=== PATIENT | female | born 1945 | race Caucasian/White ===

== ENCOUNTER 2023-05-28 08:06 | Emergency (ER) | payer MEDICARE, SELFPAY ==
[2023-05-28 08:10] VITALS: BP 195/83
--- NOTE | 2023-05-28 09:04 | ED.GENMED ---
History of Present Illness
General
Chief Complaint: Fall
Source: patient
Time Seen by Provider: 05/28/23 08:42
Travel History
Have you had any contact with someone who has COVID-19?: No
Do you have any symptoms of coronavirus? Fever > 100 degrees, chills, cough, shortness of breath, sore throat, loss of taste or smell, muscle aches, or headache?: No
History of Present Illness
History of Present Illness:
78-year-old female presents to the emergency room complaining of falling and striking her head 2 days ago. Patient states she tripped over her house 'falling forward striking the right forehead. No loss of consciousness. Patient has been feeling
okay since the fall until this morning when she noted she was developing bruising around her right eye. Patient also has a mild neck discomfort. She believes the next discomfort is more related to reading for prolonged period of time on her iPad.
She denies any nausea or vomiting. She does not have significant headache.
Past History
Past History
ED Past Medical History: Arrthythmia (PAF), CHF, COPD, HTN, Hypercholesterolemia and Valvular disease
ED Past Surgical History: None
Social History
Tobacco: Non-smoker
Alcohol: None
Drug: None
Living: with family
Employment: Retired
Family History
Family History: Other (n/c)
Phy Exam
Physical Exam
Physical Exam:
General: Awake, Alert, Oriented X3. No acute distress.
Vitals: unremarkable
Head: Mild ecchymosis noted infraorbitally on the right mild ecchymosis on the right forehead.
Eyes: Pupils equal, EOMI
Throat: Airway intact, no exudates
Neck: Trachea midline
Lungs: Clear and equal b/l
Heart: Regular rate, no murmurs
Abd: Soft, Nontender, No pulsatile mass
Neuro: Cranial nerves intact, muscle strength equal bilaterally, cerebellar exam normal
Skin: Warm, dry, no rash
Extremities: pulses equal b/l, no edema
Course
Orders/Labs/Results
Orders:
Orders
05/28/23 08:16
CT Head W/o Iv Contrast Urgent
Comment:
Reason For Exam: head injury on Eliquis
Cervical Spine 4 or 5 Vw [CR Cervical Spine 4 Or 5 Vw] Urgent
Comment:
Reason For Exam: fall
Vital Signs
Initial and Last Documented VS:
Initial Vital Signs
Temp Pulse Resp BP Pulse Ox
98 F 71 16 195/83 98
05/28/23 08:10 05/28/23 08:10 05/28/23 08:10 05/28/23 08:10 05/28/23 08:10
Last Documented Vital Signs
Temp Pulse Resp BP Pulse Ox
98 F 71 16 195/83 98
05/28/23 08:10 05/28/23 08:10 05/28/23 08:10 05/28/23 08:10 05/28/23 08:10
MDM/Problems Addressed
Differential Diagnosis Includes:
Subdural, intraparenchymal bleed, contusion
MDM/Problems Addressed:
Patient's CT of the head is unremarkable. Cervical spine films ordered in triage were significant only for some chronic degenerative changes. Patient stable for discharge home
*Radiology
Radiology exam reviewed: preliminary read by ED provider (Personally reviewed the patient's cervical spine x-ray and head CT)
*Pulse Oximetry
Patient hypoxic: no
*Critical Care Note
Total Time (30-74mins, 75-104mins- exclusive of procedures): Not Applicable
ED Attending Note
-
Portions of this chart may have been created with voice recognition software.� Occasional wrong word or��sound alike� substitutions may have occurred due to the inherent limitations of voice recognition software.
Discharge Plan
Departure
Patient Disposition: Home (Routine Discharge)
Date of Disposition: 05/28/23
Time of Disposition: 09:09
Patient with high blood pressure during this ER visit?: Yes
Condition: Good
Discharge Problem:
Head injury
Instructions: Head Injury in Adults (DC), BLOOD PRESSURE
Prescriptions:
No Action
Eliquis 5 mg Tablet
5 mg PO BID
Trelegy Ellipta 200-62.5-25 mcg Blister With Device
1 inh INHALATION R DAILY
ferrous sulfate [FeroSul] 325 mg (65 mg iron) Tablet
325 mg PO DAILY 30 Days Qty: 30 0RF
furosemide 40 mg Tablet
40 mg PO DAILY 30 Days Qty: 30 0RF
ropinirole 0.25 mg Tablet
0.25 mg PO HS 30 Days Qty: 30 0RF
benzonatate 100 mg Capsule
200 mg PO BIDPRN PRN (Reason: cough) 5 Days Qty: 10 0RF
potassium chloride 20 mEq tablet extended release
20 meq PO DAILY 30 Days Qty: 30 0RF
calcium carbonate 500 mg calcium (1,250 mg) Tablet
500 mg PO DAILY
guaifenesin 600 mg tablet extended release 12hr
1,200 mg PO [id number] PRN (Reason: cough)
amiodarone [Pacerone] 200 mg Tablet
400 mg PO BID 13 Days Qty: 52 0RF
Rx Instructions:
ontinue amiodarone 400 mg PO BID load through 12/18, then transition to 200mg daily
amiodarone 200 mg tablet
200 mg PO DAILY 30 Days Qty: 30 0RF
Rx Instructions:
start on 12/19 after you complete the 400mg BID load from other Rx. Then transition to 200mg daily
Interventions
Interventions:
*Risk Screen - Suicide Last Done: 05/28/23 08:10
*General Assessment Last Done: 05/28/23 08:10
*Neglect/Abuse Screening Last Done: 05/28/23 08:10
[2023-05-28 09:21] VITALS: BP 161/87
== END 2023-05-28 09:25 | disposition home or self-care (01) ==
LOC: EMR 08:06
PROVIDERS: EMERGENCY PHYSICIAN Emergency Medicine; FAMILY PHYSICIAN Internal Medicine
DX: S09.90XA Unspecified injury of head, initial encounter (principal); W22.8XXA Striking against or struck by other objects, initial encounter; I10 Essential (primary) hypertension; Z79.01 Long term (current) use of anticoagulants
CPT/HCPCS: 99284; 70450; 72050

== ENCOUNTER → 2023-08-20 15:41 | Outpatient (REF) | payer MEDICARE, SELFPAY | LOC: HWRCS 15:41 | PROVIDERS: ATTENDING PHYSICIAN Internal Medicine Cardiovascular Disease; FAMILY PHYSICIAN Internal Medicine | DX: I34.0 Nonrheumatic mitral (valve) insufficiency (principal); I48.0 Paroxysmal atrial fibrillation; I50.32 Chronic diastolic (congestive) heart failure; I35.1 Nonrheumatic aortic (valve) insufficiency; Z79.899 Other long term (current) drug therapy | CPT/HCPCS: 93306 ==

== ENCOUNTER → 2023-10-16 12:17 | Outpatient (REF) | payer MEDICARE, SELFPAY | LOC: HWWDC 12:17 | PROVIDERS: ATTENDING PHYSICIAN Internal Medicine | DX: Z85.3 Personal history of malignant neoplasm of breast (principal); Z12.31 Encounter for screening mammogram for malignant neoplasm of breast | CPT/HCPCS: 77063; 77067 ==

== ENCOUNTER → 2024-01-22 11:57 | Outpatient (REF) | payer MEDICARE, SELFPAY | LOC: HWRCS 11:57 | PROVIDERS: ATTENDING PHYSICIAN Internal Medicine Cardiovascular Disease; FAMILY PHYSICIAN Internal Medicine | DX: I34.0 Nonrheumatic mitral (valve) insufficiency (principal); I48.0 Paroxysmal atrial fibrillation; I50.32 Chronic diastolic (congestive) heart failure; I35.1 Nonrheumatic aortic (valve) insufficiency; Z79.899 Other long term (current) drug therapy | CPT/HCPCS: 93306 ==

== ENCOUNTER → 2024-10-02 08:14 | Outpatient (REF) | payer MEDICARE, SELFPAY | LOC: RAD 08:14 | PROVIDERS: ATTENDING PHYSICIAN Internal Medicine | DX: R25.2 Cramp and spasm (principal) | CPT/HCPCS: 93925 ==

== ENCOUNTER → 2024-10-15 10:11 | Outpatient (REF) | payer MEDICARE, SELFPAY | LOC: RAD 10:11 | PROVIDERS: ATTENDING PHYSICIAN Internal Medicine | DX: I73.9 Peripheral vascular disease, unspecified (principal) | CPT/HCPCS: 93922 ==

== ENCOUNTER → 2024-10-16 12:21 | Outpatient (REF) | payer MEDICARE, SELFPAY | LOC: HWWDC 12:21 | PROVIDERS: ATTENDING PHYSICIAN Internal Medicine | DX: Z12.31 Encounter for screening mammogram for malignant neoplasm of breast (principal) | CPT/HCPCS: 77063; 77067 ==

== ENCOUNTER 2024-11-17 07:59 | Day surgery (SDC) | payer MEDICARE, SELFPAY ==
[2024-11-10 09:11] VITALS: BMI 23.3
[2024-11-17] VITALS (36 sets, daily range): BP systolic 115–192; BP diastolic 47–169; BMI 22.8
--- NOTE | 2024-11-17 09:13 | W.SUR.PREOP ---
Pre-Operative Surgical Note
-
I have examined this patient prior to the performance of the scheduled procedure.
The patient's condition is unchanged from the time of the current History and
Physical and the patient is able to undergo the scheduled procedure.
--- NOTE | 2024-11-17 11:07 | W.IMMPOSTOP ---
Surgical Immed Post Op Note
-
Primary Surgeon: Alejandro
Assisting Surgeon: Cheyenne
Pre-op Diagnosis: left calf claudication
Post-op Diagnosis: occlusion of left SFA, PT
Procedure Performed: balloon angioplasty, IVL of SFA, PT
Anesthesia Type: Local/sedation
Specimen / Cultures: None
Estimated Blood Loss: 2 cc
Complications: None
Operative Findings: Occlusion of left SFA, PT with reconstitution in plantar arch. Balloon angioplasty of SFA, IVL + angioplasty of occluded PT segment with completion angiogram showing widely patent SFA and PT
[2024-11-17] MEDS: PLAVIX 300 MG PO (11:42)
[2024-11-17] MEDS: SUBLIMAZE 50 MCG IV (11:46)
--- NOTE | 2024-11-17 12:04 | OR.RPT ---
Operative Report
Operative Report
Date of Operation: 11/17/2024
Pre Op Diagnosis: Debilitating left lower extremity claudication
Post Op Diagnosis: Debilitating left lower extremity claudication
Procedure:
1. Intravascular lithotripsy to left posterior tibial artery (Shockwave Javelin)
2. Balloon angioplasty to left posterior tibial artery (2 mm x 220 mm; 2.5 mm x 150 mm)
3. Drug-coated balloon angioplasty to left popliteal artery stenoses (5 mm x 100 mm Lutonix)
4. Diagnostic aortobiiliac arteriogram
5. Diagnostic left lower extremity arteriogram
6. Ultrasound-guided percutaneous access to the right common femoral artery
Surgeon: Jatin Allen III, MD
Airplane Dispatcher: Nate Quinn MD PGY2
Anesthesia: Sedation with local
Fluoroscopy:
28.9 min
78 mGy
20.21 gy.cm2
Complications: None
Estimated Blood Loss: Less than 10 cc
History and Indications for Procedure: 79-year-old female with debilitating left lower extremity claudication
Procedure in Detail: Radha Maria was correctly identified and placed supine on the operating table. After adequate induction of anesthesia the bilateral groins were prepped and draped in the usual sterile fashion. A timeout was performed with the
nursing and anesthesia staff confirming the patient's identity as well as the nature and laterality of the procedure.
The right common femoral artery was identified under ultrasound guidance. The artery was patent. The superior and inferior aspects of the femoral head were identified with radiographic guidance and marked at the skin level. The proposed puncture
site was infiltrated with local anesthesia. Under ultrasound guidance we accessed the right common femoral artery with a micropuncture needle and upsized to a 5 Fr sheath over a Bentson wire. The wire and a ShephertenKsolar hook flush catheter were
advanced into the distal abdominal aorta and a diagnostic aorto-biiliac arteriogram was performed:
AORTO-ILIAC ARTERIOGRAM:
Aorta: Patent with no significant stenosis identified
Right common iliac artery: Patent with no significant stenosis identified
Right external iliac artery: Patent with no significant stenosis identified
Left common iliac artery: Patent with no significant stenosis identified
Left external iliac artery: Patent with no significant stenosis identified
Under roadmap guidance using a Glidewire and the SheCargoGuardertenKsolar hook catheter we selected the left common iliac artery followed by the external iliac artery and then the common femoral artery. A catheter was tracked up and over the aortic bifurcation and
placed in the common femoral artery. A diagnostic left lower extremity arteriogram was then performed which demonstrated the following:
LEFT LOWER EXTREMITY:
Common femoral artery: Patent with no stenosis identified
Profunda femoral artery: Patent with no stenosis identified
Superficial femoral artery: Patent with no stenosis identified
Popliteal artery: Patent. Focal high-grade stenoses identified above the knee and behind the knee. Below the knee segment patent with no stenosis identified
Anterior tibial artery: Patent. Mild to moderate stenosis focally mid section. Continues across the ankle to form the dorsalis pedis artery
Tibioperoneal trunk: Patent with no stenosis identified
Peroneal artery: Occluded proximally but reconstitutes towards the ankle.
Posterior tibial artery: Patent proximally. Segmental occlusions and high-grade stenosis demonstrated throughout the length of the artery. Diffusely diseased. Reconstitution of diminutive PT identified near the ankle.
ENDOVASCULAR INTERVENTION: Systemic heparin was administered. Exchanged out for a 6 Fr 45 cm sheath over a Storq wire. Selected the superficial femoral artery under roadmap guidance. The popliteal artery stenoses were crossed with a Quickcross and
Glidewire. The wire and catheter were advanced into the popliteal artery below the knee and subtraction angio confirmed proper position in the true lumen. The popliteal artery stenoses were treated with a 5 mm x 100 mm Lutonix drug-coated
angioplasty balloon. The balloon was positioned in the desired location under roadmap guidance, inflated to nominal pressure and held in place for 3 minutes before slowly deflating and removing over the wire. Subsequent arteriogram demonstrated an
excellent technical result with a widely patent popliteal artery and no significant residual stenosis or filling defects identified.
I then focused my attention on treating the posterior tibial artery disease. Under roadmap guidance using a Glidewire and Quickcross catheter we selected the posterior tibial artery stump. We then exchanged out for a [address] wire and 0.014
Quickcross. The wire and catheter were navigated through the posterior tibial artery and into the reconstituted plantar branch in the foot. Position confirmed with an injection through the catheter. Due to the calcified nature of the posterior
tibial artery disease and in an effort to successfully cross the artery, modify the calcium and achieve luminal gain with endovascular intervention I elected to proceed with intravascular lithotripsy with a Shockwave Javelin catheter. The Javelin
catheter was brought into position under radiographic guidance over the 0.014 wire into the proximal PT. The Javelin catheter was advanced through the posterior tibial artery and across the disease while simultaneously delivering lithotripsy pulses.
The tip of the catheter was advanced to the proximal plantar branch in the foot just below the calcaneus. 80 pulses were delivered on the way down through the PT and the remaining 40 while retracting the catheter back through the PT. Subsequent
arteriogram demonstrated significant luminal improvement. I then followed this with a 2 mm x 220 mm angioplasty balloon for the mid/distal STAMP MOUNTER. The balloon was positioned in the desired location under roadmap guidance, inflated to nominal pressure
and held in place for 3 minutes. The proximal and mid posterior tibial artery was treated with a 2.5 mm x 150 mm angioplasty balloon. Again this balloon was positioned in the desired location under roadmap guidance, inflated to nominal pressure
and held in place for 3-minute inflation
COMPLETION ARTERIOGRAM: Excellent technical result. Posterior tibial artery widely patent with brisk flow equal to the anterior tibial artery. No significant residual stenosis remained. Brisk flow into the foot to form the plantar branches.
Overall significant improvement compared to pretreatment.
Satisfied with this result we concluded the procedure. The sheath tip was pulled back into the right external iliac artery. Protamine was administered. The sheath was secured in place with a plan to pull it in the recovery room. The
The patient tolerated the procedure well and was taken to the recovery area in stable condition.
Attestation: I was present and responsible for the entire procedure.
Signed:
Jatin Allen III, MD
Vascular Surgery
[facility]
[2024-11-17 12:34] LABS: ALT (SGPT) 12 U/L (0-35); AST (SGOT) 22 U/L (14-36); Albumin 3.6 g/dl (3.5-5.0); Alkaline Phosphatase 69 U/L (38-126); Total Protein 5.9 g/dl (6.3-8.2)
[2024-11-17] MEDS: TYLENOL 650 MG PO (15:22)
== END 2024-11-17 17:01 | disposition home or self-care (01) ==
LOC: CATH 07:59
PROVIDERS: Nurse Practitioner Acute Care; ATTENDING PHYSICIAN Surgery Vascular Surgery; OTHER PHYSICIAN Internal Medicine Cardiovascular Disease; PRIMARYCARE PHYSICIAN Internal Medicine
DX: I73.9 Peripheral vascular disease, unspecified (principal); J44.9 Chronic obstructive pulmonary disease, unspecified; Z79.01 Long term (current) use of anticoagulants; I10 Essential (primary) hypertension
CPT/HCPCS: 37224; C9772; 75625; 75710; 80076; C1725; C1769; C1894; C2623; Q9967

== ENCOUNTER 2024-11-24 16:53 | Inpatient (IN) | payer MEDICARE, SELFPAY ==
[2024-11-24] VITALS (15 sets, daily range): BP systolic 85–168; BP diastolic 54–85; BMI 24.1; BMI 22.7
[2024-11-24 13:31] LABS: Hematocrit 38.3 % (37.0-47.0); Hemoglobin 12.8 g/dL (12.0-16.0); Mean Corp Hgb Conc. 33.4 g/dL (33.0-37.0); Mean Corpuscular Volume 99.0 fL (81.0-99.0); Nucleated Red Blood Cells % 0 %; Platelet Count 204 10^3/uL (130-400); Red Cell Dist. Width 14.9 % (11.5-14.5)
[2024-11-24 13:35] LABS: INR 1.39; PT 17.4 Sec (11.4-14.6)
[2024-11-24 13:36] LABS: APTT 27.4 Sec (23.4-35.0)
[2024-11-24 13:43] LABS: ALT (SGPT) 14 U/L (0-35); AST (SGOT) 25 U/L (14-36); Albumin 4.4 g/dl (3.5-5.0); Alkaline Phosphatase 73 U/L (38-126); Blood Urea Nitrogen 21 mg/dl (7-17); Calcium 9.2 mg/dl (8.4-10.2); Carbon Dioxide 26 mmol/L (22-30); Chloride 105 mmol/L (98-107); Glucose 106 mg/dl (70-99); Potassium 4.2 mmol/L (3.5-5.1); Sodium 139 mmol/L (135-145); Total Protein 7.2 g/dl (6.3-8.2); eGFR 56.60
--- NOTE | 2024-11-24 14:25 | ED.GENMED ---
History of Present Illness
<Eugenia Logan TRACK REPAIR LABORER - Last Filed: 11/24/24 14:28>
General
Chief Complaint: Swelling
Time Seen by Provider: 11/24/24 14:38
<Luisito Farrar MD - Last Filed: 11/24/24 15:32>
General
Source: patient and records
Exam Limitations: none
Nursing documentation reviewed up to this point in time: agreed with
History of Present Illness
History of Present Illness:
79-year-old female with past medical history of atrial fibrillation on Eliquis, COPD, hypertension, peripheral vascular disease who presents to the ER for evaluation of right leg/groin pain and swelling. Patient had angiogram and angioplasty with
Dr. Allen 11/17 for left leg claudication�right femoral artery used for access. She says that she had been generally well resting since procedure. She has had some bruising in the right leg but today around noon started having severe pain in the
right groin/thigh and increasing swelling which prompted visit to the emergency room. She denies any trauma or injury since the surgery. She denies any other acute complaints.
Past History
<Eugenia Logan TRACK REPAIR LABORER - Last Filed: 11/24/24 14:28>
Past History
ED Past Medical History: Arrthythmia (PAF), CHF, COPD, HTN, Hypercholesterolemia and Valvular disease
ED Past Surgical History: None
Social History
Tobacco: Non-smoker
Alcohol: None
Drug: None
Living: with family
Employment: Retired
Family History
Family History: Other (n/c)
Review of Systems
<Luisito Farrar MD - Last Filed: 11/24/24 15:32>
Review of Systems
All Other Systems: ROS reviewed and negative except as documented in HPI and ROS
Constitutional: Denies fever
Respiratory: Denies trouble breathing
Cardiac: Denies chest pain
ABD/GI: Denies abdominal pain
Musculoskeletal: Reports other (Right groin/thigh pain)
Skin: Reports other (Bruising right groin/thigh)
Phy Exam
<Luisito Farrar MD - Last Filed: 11/24/24 15:32>
Physical Exam
Physical Exam:
General: Awake, alert, oriented x3; appears uncomfortable
Head: Normocephalic, atraumatic
Eyes: Conjunctiva normal
Throat: Airway intact, handling secretions
Neck: Trachea midline, supple without meningismus
Lungs: Breathing comfortably no distress
Heart: Tachycardia; she does have palpable distal pulses bilaterally in her legs
Abd: Soft, non distended, nontender
Neuro: Grossly intact
Extremities: Patient has trace edema around the ankles left slightly more than right; no calf tenderness; on exam of the right groin she does have significant bruising extending from suprapubic region towards the right inguinal and right medial
thigh; there is some induration and pulsatile mass in the area of the femoral artery
Scores
<Luisito Farrar MD - Last Filed: 11/24/24 15:32>
Heart Failure Risk
Heart Failure Risk Score: Not Applicable
Heart Score for Chest Pain Patients
STEMI patient?: Not applicable
Withdrawal Assessment of Alcohol
Withdrawal Assessment Completed?: Not applicable
Course
<Eugenia Logan NP - Last Filed: 11/24/24 14:28>
Orders/Labs/Results
Orders:
Orders
11/24/24 13:19
US Groin (vascular exam) RT Urgent
Comment:
Reason For Exam: right groin swelling s/p left leg stents
11/24/24 13:21
Type+Screen Urgent
Complete Blood Count/With Diff Urgent
Comprehensive Metabolic Panel Urgent
PTT Urgent
Prothrombin Time Urgent
11/24/24 14:47
Vascular Surgery Consult Urgent
Consulting Provider: Manjit Guerra
Was physician already notified: Yes
HYDROmorphone [Dilaudid] 0.5 mg IV NOW STA
11/24/24 14:49
ABO2 Urgent
BBK Wristband Number:
Associate notified that ABO2 has been ordered: ROSALEE-ER
Date: 11/24/24
Time: 13:26
Security And Compliance Analyst ID: [id number]
Abnormal Lab Results
11/24/24
13:21
RBC 3.87 L 10^6/uL
(4.20-5.40)
MCH 33.1 H pg
(27.0-31.0)
RDW 14.9 H %
(11.5-14.5)
Absolute Lymphs (auto) 1.0 L 10^3/uL
(1.2-3.4)
Lymphocytes % 18.6 L %
(20.5-51.1)
Monocytes % 10.0 H %
(1.7-9.3)
PT 17.4 H Sec
(11.4-14.6)
BUN 21 H mg/dl
(7-17)
Glucose 106 H mg/dl
(70-99)
11/24/24 13:21
11/24/24 13:21
Vital Signs
Initial and Last Documented VS:
Initial Vital Signs
Temp Pulse Resp BP Pulse Ox
36.4 C 100 20 144/85 98
11/24/24 13:12 11/24/24 13:12 11/24/24 13:12 11/24/24 13:12 11/24/24 13:12
Last Documented Vital Signs
Temp Pulse Resp BP Pulse Ox
36.4 C 79 12 159/56 100
11/24/24 13:12 11/24/24 15:00 11/24/24 15:00 11/24/24 15:00 11/24/24 15:00
<Luisito Farrar MD - Last Filed: 11/24/24 15:32>
Orders/Labs/Results
Orders:
Orders
11/24/24 13:19
US Groin (vascular exam) RT Urgent
Comment:
Reason For Exam: right groin swelling s/p left leg stents
11/24/24 13:21
Type+Screen Urgent
Complete Blood Count/With Diff Urgent
Comprehensive Metabolic Panel Urgent
PTT Urgent
Prothrombin Time Urgent
11/24/24 14:47
Vascular Surgery Consult Urgent
Consulting Provider: Manjit Guerra
Was physician already notified: Yes
HYDROmorphone [Dilaudid] 0.5 mg IV NOW STA
11/24/24 14:49
ABO2 Urgent
BBK Wristband Number:
Associate notified that ABO2 has been ordered: ROSALEE-ER
Date: 11/24/24
Time: 13:26
Security And Compliance Analyst ID: [id number]
Abnormal Lab Results
11/24/24
13:21
RBC 3.87 L 10^6/uL
(4.20-5.40)
MCH 33.1 H pg
(27.0-31.0)
RDW 14.9 H %
(11.5-14.5)
Absolute Lymphs (auto) 1.0 L 10^3/uL
(1.2-3.4)
Lymphocytes % 18.6 L %
(20.5-51.1)
Monocytes % 10.0 H %
(1.7-9.3)
PT 17.4 H Sec
(11.4-14.6)
BUN 21 H mg/dl
(7-17)
Glucose 106 H mg/dl
(70-99)
11/24/24 13:21
11/24/24 13:21
Vital Signs
Initial and Last Documented VS:
Initial Vital Signs
Temp Pulse Resp BP Pulse Ox
36.4 C 100 20 144/85 98
11/24/24 13:12 11/24/24 13:12 11/24/24 13:12 11/24/24 13:12 11/24/24 13:12
Last Documented Vital Signs
Temp Pulse Resp BP Pulse Ox
36.4 C 79 12 159/56 100
11/24/24 13:12 11/24/24 15:00 11/24/24 15:00 11/24/24 15:00 11/24/24 15:00
<Luisito Farrar MD - Last Filed: 11/24/24 15:32>
MDM/Problems Addressed
Differential Diagnosis Includes:
Pseudoaneurysm, hematoma
MDM/Problems Addressed:
79-year-old female presents with right groin/medial thigh pain and swelling, bruising started abruptly today 1 week out from vascular surgery last week. Vitals and exam as above. She had lab work sent in triage including a CBC and a CMP which
showed no clinically significant. She had an ultrasound out of triage which showed signs concerning for pseudoaneurysm. Case discussed with vascular surgery�they are currently in the OR, recommended consult to interventional radiology for
consideration for thrombin injection. Discussed with interventional radiology who are agreeable. Will admit to hospitalist for observation overnight after procedure, likely follow-up ultrasound in the morning. Case discussed with hospitalist.
Chronic conditions affecting care:
A-fib on Eliquis
Acute Exacerbation and/or Progression of Chronic Illness:
Acutely hypertensive likely pain related�treat pain but no indication for emergent antihypertensives for now
Acute Exacerbation and/or Progression of Chronic Illness: HTN
<Eugenia Logan NP - Last Filed: 11/24/24 14:28>
*Pulse Oximetry
SaO2: 98
Oxygen Mode of Delivery: Room air
<Luisito Farrar MD - Last Filed: 11/24/24 15:32>
*Pulse Oximetry
Oxygen Mode of Delivery: Room air
Patient hypoxic: no (98%)
*Critical Care Note
Total Time (30-74mins, 75-104mins- exclusive of procedures): Not Applicable
Data Reviewed
Review of Other/Old Records Reveals: Records and Operative Reports
Source: patient and records
<Luisito Farrar MD - Last Filed: 11/24/24 15:32>
Patient Management
Discussion with other providers: Hospitalist (Discussed with hospitalist) and Box Covering Machine Operator (Discussed with vascular surgery, discussed with the interventional radiology)
Escalation/DeEscalation of care consider admission/obs:
Admission indicated
ED Attending Note
<Eugenia Logan NP - Last Filed: 11/24/24 14:28>
-
Portions of this chart may have been created with voice recognition software.� Occasional wrong word or��sound alike� substitutions may have occurred due to the inherent limitations of voice recognition software.
Discharge Plan
Departure
Patient Disposition: Admit
Date of Disposition: 11/24/24
Time of Disposition: 15:32
Admit to doctor: Alexandr
Presentation/result/management discussed w/ accepting MD/DO: Hospitalist
Discharge Problem:
Pseudoaneurysm of femoral artery
Prescriptions:
No Action
Eliquis 5 mg Tablet
5 mg PO BID
Trelegy Ellipta 200-62.5-25 mcg Blister With Device
1 inh INHALATION R DAILY
valsartan 80 mg Tablet
80 mg PO QPM
acetaminophen 650 mg Tablet Extended Release
1,300 mg PO Q8H PRN (Reason: pain)
magnesium 250 mg Tablet
250 mg PO DAILY
Calcium 600 + D(3)
1 dose PO DAILY
furosemide 40 mg tablet
20 mg PO MOWEFR
amiodarone 200 mg tablet
100 mg PO DAILY
levalbuterol tartrate 45 mcg/actuation Hfa Aerosol Inhaler
2 inh INHALATION PRN PRN (Reason: COPD)
clopidogrel 75 mg Tablet
75 mg PO DAILY Qty: 90 0RF
atorvastatin 10 mg Tablet
10 mg PO QPM Qty: 120 0RF
Referrals:
Lise Jefferson DO [Family Provider, Family Practice]
Interventions
Interventions:
*Risk Screen - Suicide Last Done: 11/24/24 13:12
*Neglect/Abuse Screening Last Done: 11/24/24 15:04
ED- Cardiac Assessment Last Done: 11/24/24 15:05
ED- Pulmonary Assessment Last Done: 11/24/24 15:05
ED-Skin Assessment Last Done: 11/24/24 15:05
Discharge Date and Time
Print Language: MONTENEGRIN
[2024-11-24] MEDS: DILAUDID 0.5 MG IV ×2 (14:52→18:53)
--- NOTE | 2024-11-24 15:01 | EDRN ---
1440 pt received from [facility] via stretcher. Transferred to ER 39. Dr Farrar in
--- NOTE | 2024-11-24 15:37 | HPS.HSE ---
Addendum entered and electronically signed by Mariano Strange MD 11/24/24 16:33:
I saw and examined the patient.
The POLICE ACADEMY PROGRAM COORDINATOR or PA's note was reviewed and I agree with the note.
Comment:
79F S/p LLE angioplast ( Dr. Allen 11/17) pw R groin swelling and pain today.
Son suggest pseudoaneurysm.
Plan is IR to take for thrombin injection.
Per vascular observe after and to repeat US in AM.
ER consulted IR and vascular.
Original Note:
Family Physician
-
Family Physician: Lise Jefferson DO
Chief Complaint
-
Right groin ecchymosis, swelling status post angioplasty
History of Present Illness
79-year-old female status post angioplasty by Dr. Allen on 11/17 for left leg claudication using right femoral artery for access. She reports bruising in the right groin and thigh with increased swelling which prompted her to come to the ER for
evaluation today. Patient denies headache, fever, chills, chest pain, palpitations, cough, shortness of breath, abdominal pain, nausea, vomiting, diarrhea, urinary symptoms.
She has past medical history of chronic diastolic heart failure, CKD 3 A, persistent A-fib, HTN, HLD, COPD, COVID-19, hyponatremia, Left breast lumpectomy 2011, constipation, CHITIMACHA
Medical History
Past Medical History
Past Medical History: Reports Other
Additional Past Medical History:
Diastolic heart failure
CKD 3 A
Persistent A-fib
HTN
HLD
COPD
COVID-19
hyponatremia
Past Surgical History: Reports Other
Additional Past Surgical History:
Left breast lumpectomy
Angioplasty via access right groin to left leg 11/17/2024
Social History
Tobacco: Non-smoker
Alcohol: Occasional
Drug: None
Personal: Single
Living: With Family
Employment: Retired
Family History
Family History: Not pertinent
Allergies / Home Medications
Allergies reflects when Allergies were last updated in [facility].
Home Medications with original date entered in [facility]
Allergy/Medication List:
Allergies
Allergy/AdvReac Type Severity Reaction Status Date / Time
No Known Allergies Allergy Verified 11/24/24 13:11
Home Medications
fluticasone fur. 200 mcg-umeclid 62.5 mcg-vilant 25 mcg inhalat.powder (Trelegy Ellipta) 1 inh inhalation R DAILY Lung/Breathing Issues 11/28/22
amiodarone 200 mg tablet 100 mg PO DAILY 11/07/24
calcium carbonate 500 mg PO DAILY ##0 11/07/24
magnesium 250 mg tablet 250 mg PO DAILY 11/07/24
valsartan 80 mg tablet 80 mg PO QPM 11/07/24
atorvastatin 10 mg tablet 10 mg PO QPM #120 tabs 11/17/24
clopidogrel 75 mg tablet 75 mg PO DAILY #90 tabs 11/17/24
levalbuterol tartrate 45 mcg/actuation aerosol inhaler 2 inh inhalation R Q6HPRN PRN COPD 11/17/24
apixaban 5 mg tablet (Eliquis) 5 mg PO BID 11/24/24
furosemide 20 mg tablet (Lasix) 20 mg PO MOWEFR 11/24/24
Review of Systems
-
History Source: Patient and Family (Daughters at bedside)
A 12 point ROS was completed and negative except as noted: Yes
Constitutional: Denies Fever or Chills
EENT: Denies Sore Throat or Runny Nose
Respiratory: Denies Cough or Trouble Breathing
Cardiac: Denies Chest Pain, Diaphoresis, Palpitations or Syncope
Abdomen/GI: Denies Abdominal Pain, Nausea, Vomiting, Diarrhea, Constipated or Bloody Stools
: Denies Dysuria, Frequency, Flank Pain, Incontinence, Difficulty Voiding or Urgency
Musculoskeletal: Reports Edema (/Ecchymosis right groin to right thigh/right mons pubis); Denies Joint Pain or Joint Swelling
Skin: Denies Itching or Rash
Neurological: Denies Dizzy, Headache or Weakness
Endocrine: Reports No Symptoms
Hematologic/Lymphatic: Reports No Symptoms
Psych: Reports Calm
Physical Exam
Vital Signs
Vital Signs
Temp Pulse Resp BP Pulse Ox
97.5 F 80 19 159/56 100
11/24/24 13:12 11/24/24 15:30 11/24/24 15:30 11/24/24 15:00 11/24/24 15:30
Physical Exam
General: Conversant; No Fever or Chills
HEENT: NormoCephalic, Anicteric, Moist mucous membranes, PERRLA, [place] Conjunctivae and No Ptosis
Respiratory: Clear; No Wheezes, Rales or Rhonchi
Cardiac: S1/S2, Regular Rhythm and Peripheral Edema (+1 left lower extremity edema); No Murmur, Rub or Gallop
Breast: Deferred by me
GI: Soft, Non Tender, Non Distended, Normal Bowel Sounds and No Hepatosplenomegaly
Rectal: Deferred by Provider
Genito-urinary: Deferred by me
Musculoskeletal: No Clubbing, No Cyanosis and Edema, Left Lower Extremity (+1); No Edema, Left Upper Extremity, Edema, Right Upper Extremity or Edema, Right Lower Extremity
Skin: Warm, Dry and Other (/Ecchymosis right groin to right thigh/right mons pubis); No Rash
Neuro: AO x 3, No Motor Deficits, Nonfocal/grossly intact, Cranial Nerves Intact and No Sensory Deficits; No Slurred Speech, Facial Droop, Tremors or Sedated
Psych: Calm
Laboratory Results
-
11/24/24 13:21
11/24/24 13:21
Laboratory Results
PT 17.4 Sec (11.4-14.6) H 11/24/24 13:21
INR 1.39 11/24/24 13:21
APTT 27.4 Sec (23.4-35.0) 11/24/24 13:21
Total Bilirubin 1.1 mg/dl (0.2-1.3) 11/24/24 13:21
AST 25 U/L (14-36) 11/24/24 13:21
ALT 14 U/L (0-35) 11/24/24 13:21
Alkaline Phosphatase 73 U/L (38-126) 11/24/24 13:21
Impression/Plan
-
Impression/plan:
Admit to IVU
#Pseudoaneurysm right femoral artery status post angioplasty LEFT leg on 11/17/[address] Allen
#History of debilitating left lower extremity claudication
- Consult IR
-Consult vascular surgery
Hgb stable 12.8
- Continue Plavix 75 mg daily, atorvastatin 10 mg every afternoon
#Chronic diastolic heart failure
I/O, daily weight
Continue Lasix Sunday 20 mg
CKD 3 A
- Creat 1 appears baseline for patient
#Persistent A-fib
Hold Tataquis patient took last dose 11/24/2024 at 1030 this a.m.
Continue amiodarone 100 mg daily
#HTN
BP 159/56
-Continue valsartan 80 mg every afternoon
#HLD
Continue atorvastatin 10 mg every afternoon
COPD�no acute exacerbation
- Continue inhalers
#Hypomagnesemia
Continue magnesium 250 mg daily
Other PMH:
COVID-19 hx
hyponatremia
DVT prophylaxis
Hold Tataquis taken this a.m. 11/24/2024 at 1030
Full code
--- NOTE | 2024-11-24 18:48 | W.PN.UPDATE ---
Update Note
Progress Note Update
Right groin pseudoaneurysm was complex and multilobulated. Two separate thrombin injections of 1000 units each, with complete cessation of flow in the pseudoaneurysm.
Right MANAGER [employer]LET[employer] flow preserved after injection. Strong PT and weak DP doppler signals, unchanged compared to before injection.
Patient reported numbness in both of her feet, which began this morning. She felt a pressure sensation immediately after the injection, and pressure and numbness in her right calf, which was improving after injection.
There is a large hematoma in her right groin, which may be exerting pressure on nerves and causing her LE symptoms.
Plan for repeat US tomorrow to confirm closure.
--- NOTE | 2024-11-24 19:00 | PTCARENOTE ---
Patient admitted to IVU. HOB flat until 7 pm. Right femoral site swollen, tender, pulsating pain, very bruised. 7 out 10. Dilaudid IV given and she developed nausea and dry heavies. Nausea and pain resolved. Edema + 2 left lower leg, warm and red.
Pulses verified with Doppler. Purwick placed. Daughter at bedside. Light dinner provided and tolerating
[2024-11-24] MEDS: ZOFRAN 4 MG IV (19:57)
[2024-11-24] MEDS: DIOVAN 80 MG PO (19:58)
[2024-11-24] MEDS: LIPITOR 10 MG PO (19:58)
--- NOTE | 2024-11-24 23:29 | PTCARENOTE ---
Received pt at change of shift, aaox3, drowsy, able to make needs known, family at bedside. Right femoral site swollen and tender, ecchymotic. Dilaudid IV was given previous shift, denies pain, sensation to LE improving. Edema + 1 LLE and +2 right
thigh, warm and red, pulses verified with Doppler. Pt had x1 episode of large undigested food emesis after dinner. Zofran given with + effect. SR on the monitor, HR 70's. OOB with assist x1 to bedside commode, clear yellow large urine output. Denied
dizziness or lightheadedness with ambulation. VSS. Call garrison within reach.
[2024-11-25 04:04] VITALS: BP 122/45
[2024-11-25] MEDS: TYLENOL 650 MG PO (04:22)
[2024-11-25 05:12] LABS: Hematocrit 30.3 % (37.0-47.0); Hemoglobin 10.3 g/dL (12.0-16.0); Mean Corp Hgb Conc. 34.0 g/dL (33.0-37.0); Mean Corpuscular Volume 100.7 fL (81.0-99.0); Nucleated Red Blood Cells % 0 %; Platelet Count 163 10^3/uL (130-400); Red Cell Dist. Width 15.1 % (11.5-14.5)
[2024-11-25 05:30] VITALS: BMI 22.7
[2024-11-25 05:31] LABS: ALT (SGPT) 12 U/L (0-35); AST (SGOT) 20 U/L (14-36); Albumin 3.6 g/dl (3.5-5.0); Alkaline Phosphatase 60 U/L (38-126); Blood Urea Nitrogen 27 mg/dl (7-17); Calcium 8.8 mg/dl (8.4-10.2); Carbon Dioxide 26 mmol/L (22-30); Chloride 104 mmol/L (98-107); Estimated Creatinine Clearance 34 ml/min; Glucose 93 mg/dl (70-99); Potassium 4.5 mmol/L (3.5-5.1); Sodium 135 mmol/L (135-145); Total Protein 6.0 g/dl (6.3-8.2); eGFR 45.48
--- NOTE | 2024-11-25 05:36 | PTCARENOTE ---
Hgb dropped from 12.8 to 10.3 with morning labs, no signs of active bleeding noted, urine clear yellow.VSS. mail caller SYSTEM SUPPORT TECHNICIAN made aware, no new orders at this time.
[2024-11-25 07:33] VITALS: BP 123/49
[2024-11-25] MEDS: SYMBICORT 160/4.5 MCG INHALER 2 PUFF INH (07:48)
[2024-11-25] MEDS: SPIRIVA RESPIMAT 2.5 MCG 2 PUFF INH (07:49)
[2024-11-25] MEDS: OSCAL CAL 500 500 MG PO (08:25)
[2024-11-25] MEDS: PACERONE 100 MG PO (08:25)
[2024-11-25] MEDS: PLAVIX 75 MG PO (08:25)
[2024-11-25] MEDS: MAGNESIUM OXIDE 250 MG PO (08:25)
--- NOTE | 2024-11-25 09:28 | W.PN.HOSP.TC ---
Today's Communication/Plan
-
IR to repeat ultrasound today to confirm closure
Plan discharge when cleared by vascular surgery
Assessment / Plan
Assessment / Plan
Patient is a 79-year-old female s/p angioplasty by Dr. Allen on 11/17/2024 for left leg claudication using right femoral artery for access. Patient reported bruising in the right groin and thigh with increased swelling which prompted her ER visit on
11/24/2024. No headache, fever, chills, chest pain, palpitation, cough, shortness of breath, abdominal pain, vomiting, diarrhea or urinary symptoms. Additional past medical history of chronic diastolic heart failure, CKD, persistent atrial
fibrillation, hypertension, hyperlipidemia, COPD, hyponatremia, left breast lumpectomy in 2011.
# Pseudoaneurysm of right femoral artery s/p angioplasty left leg on 11/17/[address] Allen
# History of debilitating left lower extremity claudication
# Nausea and vomiting
�IR and vascular surgery were consulted.
� IR: Two separate thrombin injections of 1000 units each, with complete cessation of flow in the pseudoaneurysm. Right COMPOUND FILLER flow preserved after injection. Strong PT and weak DP doppler signals, unchanged compared to before injection. Patient
reported numbness in both of her feet, which began 11/24/24 morning. She felt a pressure sensation immediately after the injection, and pressure and numbness in her right calf, which was improving after injection. Symptoms resolved 11/25/24 morning.
� Plan for repeat ultrasound today 11/25/24 to confirm closure
� Hemoglobin 10.3 11/25/24, decreased from 12.8 yesterday. Trend Hgb.
� Continue Plavix 75 Mg daily, atorvastatin 10 Mg every afternoon
� Continue Dilaudid 0.5 mg IV Q3hPRN
� Continue Zofran 4 Mg IV Q6hPRN
#Chronic diastolic heart failure
� I/Os, daily weights
� Continue Lasix 20 mg Sunday/Sunday/Sunday
#Chronic kidney disease stage IIIa
�Creatinine 1.2 which is near baseline for patient.
�Trend CMP.
#Persistent atrial fibrillation
� Hold Eliquis. Last dose 11/24/2024 at 10:30 AM
�Continue amiodarone 100 Mg daily
#Hypertension
�Continue valsartan 80 Mg every afternoon
#Hyperlipidemia
� Continue atorvastatin 10 Mg every afternoon
#COPD
� No acute exacerbation, continue inhalers.
#Hypomagnesemia
�Continue magnesium 250 Mg daily
DVT prophylaxis: Contraindicated with PAD/hematoma with ABLA
CODE STATUS: Full code
Anticipated Discharge: 24 - 48 hours
Subjective/Interval History
-
Date of Service: November 25, 2024
Patient states she does not have lower extremity numbness/pain anymore. Patient had an episode of vomiting yesteday with associated nausea, but none since. No new symptoms.
Objective Data
-
Labs:
Laboratory Results
11/25/24 11/25/24
04:11 04:12
WBC 5.9
Hgb 10.3 L
Hct 30.3 L
Plt Count 163 D
Sodium 135
Potassium 4.5
Chloride 104
Carbon Dioxide 26
BUN 27 H
Creatinine 1.2 H
Glucose 93
Calcium 8.8
Total Bilirubin 1.2
AST 20
ALT 12
Alkaline Phosphatase 60
Vital Signs:
Vital Signs
Temp Pulse Resp BP Pulse Ox
98.3 F 71 14 123/49 97
11/25/24 07:33 11/25/24 08:25 11/25/24 07:55 11/25/24 08:25 11/25/24 07:55
I&O
11/24/24 11/25/24 11/26/24
06:59 06:59 06:59
Intake Total 240 / 240
Output Total 1250 / 1250
Balance -1010 / -1010
Review of Systems
-
History Source: Patient
Constitutional: Reports No Symptoms
EENT: Reports No Symptoms Reported
Respiratory: Reports No Symptoms
Cardiac: Reports No Symptoms
Abdomen/GI: Reports No Symptoms
Breast: Reports No Symptoms
Genitourinary: Reports No Symptoms
Musculoskeletal: Reports No Symptoms
Skin: Reports No Symptoms
Neuro: Reports No Symptoms
Endocrine: Reports No Symptoms
Hematologic / Lymphatic: Reports No Symptoms
Allergy / Immunology: Reports No Symptoms
Physical Exam
-
General: Well Developed, Well Nourished, No Apparent Distress, Comfortable and Conversant
HEENT: Normocephalic, Atraumatic, Moist Mucous Membranes and Anicteric
Respiratory: Clear to Auscultation
Cardiac: Regular Rhythm and S1/S2
GI: Soft, Nontender, Nondistended and Normal Bowel Sounds
Musculoskeletal: No Clubbing, No Cyanosis and No Edema
Neuro: Awake, AO x 3 and Nonfocal/Grossly Intact
Psych: Calm
Data Reviewed
-
Labs: Labs Reviewed by me and Discussed with Physician
Old Records: Reviewed
--- NOTE | 2024-11-25 10:36 | W.PN.UPDATE ---
Addendum entered and electronically signed by Christo Penn MD 11/25/24 12:05:
Case discussed with vascular surgery. They have cleared the patient for discharge. Eliquis may be restarted tonight.
Unexpected rapid recovery
Total time spent on d/c = 34 min. This included today's physical exam, progress note, review of laboratory and diagnostic data, preparation of discharge documents and prescriptions, and discussions about the pt's hospital course and discharge plan
with the patient and other medical payment poster involved in the patient's care.
Original Note:
Update Note
Progress Note Update
I saw and evaluated the patient. I reviewed the resident�s note and agree with findings and plan as documented in the resident�s note.
No new complaints.
Gen: NAD, AAOx3.
Eyes: EOMI, PERRLA, no scleral icterus.
Neck: supple.
CV: RRR, +S1/S2, no m/r/g.
Resp: CTAB, no rales, wheezes, or rhonchi.
Abd: +BS, soft, NT, ND
Skin: No rashes. Right medial thigh/groin hematoma.
Neuro: CN 2-12 intact, non-focal.
Psych: Normal mood and affect.
R groin U/S 11/25/24: Thrombosis of the previously visualized right common femoral arterial pseudoaneurysm.
Pseudoaneurysm R femoral artery:
-s/p angioplasty LEFT leg on 11/17/[address] Allen for h/o debilitating LLE claudication
-s/p thrombin injection x 2 by IR on 11/24/24, follow up U/S above
-R groin hematoma accounts for acute blood loss anemia, trend Hb while hospitalized
-c/s vascular surgery
-cont Plavix/statin
Other problems:
Chronic HFpEF: cont Lasix M/W/F, daily wts, I/Os
CKD3a
Persistent A-fib: Home Eliquis on hold, cont Amio
Essential HTN: cont ARB
HLD: cont statin
COPD, not in acute exac: cont Symbicort/Spiriva
Hypomagnesemia: cont PO Mg
FULL
DVT proph contraindicated with PAD and hematoma with ABLA
Dispo: d/c when OK with vascular surgery
--- NOTE | 2024-11-25 11:55 | CON.VAS ---
Consultation
Consultation Request
Date/Time Consultation Performed: 11/25/24 11:30
Performing Provider: Alejandro
Reason for Consultation: PSA s/p femoral access
Medical History
-
Chief Complaint: R groin swelling/pain
History of Present Illness:
79 yo female with PMH significant for afib, heart failure, CKD 3 A, HTN, HLD, COPD, presented to the ER last evening for right groin swelling/bruising s/p intravascular lithotripsy to left posterior tibial artery, balloon angioplasty to left
posterior tibial artery, drug-coated balloon angioplasty to left popliteal artery stenoses via right femoral access on 11/17/[address] Allen. She reported bruising in the right groin and thigh with increased swelling which prompted her to come to
the ER for evaluation.
ER US groin: Duplex examination of the right groin reveals an elongated bilobed right femoral artery pseudoaneurysm measuring 3.6 cm x 0.6 cm and 1.8 cm x 0.95 cm.
Vascular consult for above findings. Recommended IR to inject.
Successful thrombin injection last night by IR.
This mornings groin US showed thrombosis of the right common femoral arterial pseudoaneurysm.
Pt feeling much better this am. No other events overnight. Groin site soft and stable. Resolving symptoms in her right leg as well.
Past Medical History
Past Medical History: Other (Diastolic heart failure, CKD 3 A, Persistent A-fib, HTN, HLD, COPD, COVID-19, hyponatremia)
Past Surgical History: Other (Left breast lumpectomy, Angioplasty via access right groin to left leg 11/17/2024)
Social History
Tobacco: Non-Smoker
Alcohol: Occasional
Drug: None
Personal: Single
Living: With Family
Employment: Retired
Family History
Family History: Reviewed & Not Pertinent
Allergies / Home Medications
Allergy/AdvReac Type Severity Reaction Status Date / Time
No Known Allergies Allergy Verified 11/24/24 13:11
�Medication �Instructions �Recorded �Confirmed �Type
fluticasone fur. 200 mcg-umeclid 1 inh inhalation R DAILY 11/28/22 11/24/24 History
62.5 mcg-vilant 25 mcg Lung/Breathing Issues
inhalat.powder (Trelegy Ellipta)
amiodarone 200 mg tablet 100 mg PO DAILY 11/07/24 11/24/24 History
calcium carbonate 500 mg PO DAILY ##0 11/07/24 11/24/24 History
magnesium 250 mg tablet 250 mg PO DAILY 11/07/24 11/24/24 History
valsartan 80 mg tablet 80 mg PO QPM 11/07/24 11/24/24 History
atorvastatin 10 mg tablet 10 mg PO QPM #120 tabs 11/17/24 11/24/24 Rx
clopidogrel 75 mg tablet 75 mg PO DAILY #90 tabs 11/17/24 11/24/24 Rx
levalbuterol tartrate 45 2 inh inhalation R Q6HPRN PRN COPD 11/17/24 11/24/24 History
mcg/actuation aerosol inhaler
apixaban 5 mg tablet (Eliquis) 5 mg PO BID 11/24/24 11/24/24 History
furosemide 20 mg tablet (Lasix) 20 mg PO MOWEFR 11/24/24 11/24/24 History
Review of Systems
-
History Source: Patient
All other systems: Negative unless noted
Constitutional: Reports No Symptoms
EENT: Reports No Symptoms
Respiratory: Reports No Symptoms
Cardiac: Reports No Symptoms
Vascular: Reports Leg Pain / Claudication
Abdomen/GI: Reports No Symptoms
: Reports No Symptoms
Musculoskeletal: Reports Edema
Skin: Reports Other (bruising to right groin )
Physical Exam
Vital Signs
Temp Pulse Resp BP Pulse Ox
97.8 F 71 16 123/49 96
11/25/24 11:24 11/25/24 08:25 11/25/24 11:24 11/25/24 08:25 11/25/24 11:24
Lab Results
11/25/24 04:11
11/25/24 04:12
Physical Exam
General: No Apparent Distress
HEENT: Normocephalic and Atraumatic
Respiratory: Non Labored Respirations
Cardiac: Negative JVD
GI: Soft, Non Tender and Non Distended
Musculoskeletal: No Clubbing, No Cyanosis and Edema (RLE +1)
Skin: Warm
Neuro: Awake, Alert and Oriented
Psych: Calm
Pulses: Bilateral Dorsalis Pedis: Doppler and Bilateral Posterior Tibial: Doppler
Assessment / Plan
-
right groin swelling/bruising s/p intravascular lithotripsy to left posterior tibial artery, balloon angioplasty to left posterior tibial artery, drug-coated balloon angioplasty to left popliteal artery stenoses via right femoral access on 11/17/[address] Allen. She reported bruising in the right groin and thigh with increased swelling which prompted her to come to the ER for evaluation.
IR injected PSA
This mornings US confirmed thrombosis
Pt feeling much better this morning
Plan:
Keep scheduled follow up in our office with US
OK for DC from vascular perspective
OK for eliquis to resume tonight
Discussed with Dr Penn and Dr Allen
Data Reviewed
-
Ultrasound: Discussed with Patient
Labs: Labs Reviewed by me
[2024-11-25 13:07] VITALS: BP 146/51; O2SAT 96
--- NOTE | 2024-11-25 13:18 | PTOTSP ---
Patient demonstrates safe and independent mobility, no skilled physical therapy needs at this time.
--- NOTE | 2024-11-25 13:25 | CM ---
Reviewed chart. Met with Mrs. Maria to review discharge plans. She states prior to admission she resides alone in a two story home with one step to enter. She states she has a full flight of steps to get to bedroom/full bathroom. She states she
has a powder room on the first floor. She states prior to admission she was independent with ambulation and adls. She states she does not have any DME in the [place]. She states she has a prescriotion plan and [facility]. Medical work-up
in progress. The discharge plan is to return home when medically stable.
--- NOTE | 2024-11-25 13:41 | W.DCSUMMARY ---
Discharge Summary
Discharge Data
Date of Admission: 11/24/24
Date of Discharge: 11/25/24
-
Pending Results: No
Hospital Course
Discharging Physician : Dr. Christo Penn and Dr. Bernard Switf
Disposition : Home
Primary care physician : Dr. Lise Jefferson
Principal Discharge diagnosis : Pseudoaneurysm right femoral artery status post thrombin injection x2 by Interventional radiology on 11/24/24
Chronic Discharge diagnosis :
Diastolic heart failure
Chronic kidney disease stage IIIa
Persistent atrial fibrillation
Hypertension
Hyperlipidemia
COPD
History of left breast lumpectomy in 2011
Hospital Course :
Patient is an 79-year-old female with a history of chronic diastolic heart failure, CKD stage IIIa, persistent atrial fibrillation, hypertension, and COPD who presented on 11/24/2024 with right groin and thigh bruising and swelling following left leg
angioplasty performed by Dr. Allen on 11/17/2024 via right femoral artery access. She denies systemic symptoms including headache, fever, chills, chest pain, shortness of breath or GI complaints.
Imaging confirmed a right femoral artery pseudoaneurysm. Eliquis was held 11/24/2024. Interventional radiology performed 2 thrombin injections of 100 units each, resulting in successful thrombosis of pseudoaneurysm with preserved right common
femoral artery flow. Postprocedure, the patient noted transient numbness and pressure in the right calf, which resolved by the next morning. Hemoglobin declined from 12.8-10.3; the patient remained stable throughout. Pain and nausea was managed
as needed with Zofran PRN. Patient's amiodarone, Plavix, Lasix, valsartan, atorvastatin, magnesium and inhalers were continued. Her CKD remained stable with creatinine at baseline; renal function was monitored with CMP. DVT prophylaxis was not
administered due to hematoma and underlying PAD.
Repeat ultrasound on 11/25/2024 confirmed closure. Vascular surgery saw patient on 11/25/2024, and was cleared for discharge from their perspective. Patient was okay to resume Eliquis. She is discharged in stable condition with resolution of her
presenting symptoms and instructions to follow-up with vascular surgery and her primary care provider within 1 week.
Important imaging findings :
Groin ultrasound 11/24/24: Duplex examination of the right groin reveals an elongated bilobed right femoral artery pseudoaneurysm measuring 3.6 cm x 0.6 cm and 1.8 cm x 0.95 cm.
Groin ultrasound 11/25/24: Thrombosis of the previously visualized right common femoral arterial pseudoaneurysm.
Procedure findings :
Biopsy ultrasound 11/24/24:
1. Successful right groin pseudoaneurysm thrombin injection as above.
2. Followup ultrasound is suggested within the next week to confirm persistent occlusion of the pseudoaneurysm.
Discharge Plan
-
Patient Disposition: Home (Routine Discharge)
Discharge Diagnosis/Procedures: Pseudoaneurysm R femoral artery s/p thrombin injection x 2 by IR on 11/24/24
Condition: Good
Diet: Low Cholesterol, 2 Gram Sodium and Restrict fluids to 48 oz
Activity: As tolerated
Driving Restrictions: As prior to admission
Blood Work: BMP and CBC in 1 week, script from PCP
Specialty Instructions: Weigh Daily- Call MD for wt gain/loss 3 lbs overnight/5 lbs in 1 week
Referrals:
Lise Jefferson, [Family Provider, Family Practice] - in less than 1 week
Prescriptions:
Continued
Trelegy Ellipta 200-62.5-25 mcg Blister With Device
1 inh INHALATION R DAILY
valsartan 80 mg Tablet
80 mg PO QPM
calcium carbonate 500 mg calcium (1,250 mg) Tablet
500 mg PO DAILY Qty: 0
magnesium 250 mg Tablet
250 mg PO DAILY
amiodarone 200 mg tablet
100 mg PO DAILY
levalbuterol tartrate 45 mcg/actuation Hfa Aerosol Inhaler
2 inh INHALATION R Q6HPRN PRN (Reason: COPD)
clopidogrel 75 mg Tablet
75 mg PO DAILY Qty: 90 0RF
atorvastatin 10 mg Tablet
10 mg PO QPM Qty: 120 0RF
furosemide [Lasix] 20 mg Tablet
20 mg PO MOWEFR
Eliquis 5 mg Tablet
5 mg PO BID
Discharge Orders:
Discharge Patient (As Directed); Ordered 11/25/24
Ordered By: Christo Penn
Care Plan Goals
Care Plan Goals:
Problem: Readiness for enhanced knowledge related to diagnosis and treatment plan
Goal: Understand your diagnosis and treatment plan needs, including medications if applicable.
Instructions: Know your diagnosis, underlying causes and treatment plan options, including medications if applicable. Consult with your health care team to learn about your diagnosis and treatment plan, including medications if applicable.
Discharge Date and Time
Discharge Date/Time: 11/25/24 13:55
Print Language: WELSH
== END 2024-11-25 13:55 | disposition home or self-care (01) | DRG 300 ==
LOC: IVU 16:53
PROVIDERS: Clinical Nurse Specialist Family Health; Emergency Medicine; Radiology Vascular & Interventional Radiology; ADMITTING PHYSICIAN Internal Medicine; ATTENDING PHYSICIAN Internal Medicine; EMERGENCY PHYSICIAN Emergency Medicine; FAMILY PHYSICIAN Internal Medicine
PROC: 3E053GC Introduction of Other Therapeutic Substance into Peripheral Artery, Percutaneous Approach (ICD-10-PCS; 2024-11-24)
DX: T81.718A Complication of other artery following a procedure, not elsewhere classified, initial encounter (principal); I13.0 Hypertensive heart and chronic kidney disease with heart failure and stage 1 through stage 4 chronic kidney disease, or unspecified chronic kidney disease; I48.19 Other persistent atrial fibrillation; I50.32 Chronic diastolic (congestive) heart failure; I72.4 Aneurysm of artery of lower extremity; E78.00 Pure hypercholesterolemia, unspecified; I73.9 Peripheral vascular disease, unspecified; N18.31 Chronic kidney disease, stage 3a; J44.9 Chronic obstructive pulmonary disease, unspecified; E83.42 Hypomagnesemia; Y83.8 Other surgical procedures as the cause of abnormal reaction of the patient, or of later complication, without mention of misadventure at the time of the procedure; Z95.820 Peripheral vascular angioplasty status with implants and grafts; Z79.899 Other long term (current) drug therapy; Z79.01 Long term (current) use of anticoagulants; Z79.02 Long term (current) use of antithrombotics/antiplatelets; Z79.51 Long term (current) use of inhaled steroids
CPT/HCPCS: 36002; 76942; 80053; 85025; 85610; 85730; 86850; 86900; 86901; 93926; 94640; 96374; 97162; 99285

== ENCOUNTER → 2024-12-11 13:19 | Outpatient (REF) | payer MEDICARE, SELFPAY | LOC: DHVS 13:19 | PROVIDERS: ATTENDING PHYSICIAN Surgery Vascular Surgery; FAMILY PHYSICIAN Internal Medicine | DX: I73.9 Peripheral vascular disease, unspecified (principal) | CPT/HCPCS: 93922; 93925 ==

== ENCOUNTER → 2024-12-19 13:29 | Outpatient (REF) | payer MEDICARE, SELFPAY | LOC: RAD 13:29 | PROVIDERS: ATTENDING PHYSICIAN Registered Nurse; FAMILY PHYSICIAN Internal Medicine | DX: M79.89 Other specified soft tissue disorders (principal); M79.604 Pain in right leg | CPT/HCPCS: 93971 ==

== ENCOUNTER → 2025-02-17 13:40 | Outpatient (REF) | payer MEDICARE, SELFPAY | LOC: HWRCS 13:40 | PROVIDERS: ATTENDING PHYSICIAN Internal Medicine Cardiovascular Disease; FAMILY PHYSICIAN Internal Medicine | DX: I48.0 Paroxysmal atrial fibrillation (principal); Z79.899 Other long term (current) drug therapy; I35.1 Nonrheumatic aortic (valve) insufficiency | CPT/HCPCS: 93306 ==

== ENCOUNTER → 2025-03-10 08:52 | Outpatient (REF) | payer MEDICARE, SELFPAY | LOC: DHVS 08:52 | PROVIDERS: ATTENDING PHYSICIAN Registered Nurse | DX: I73.9 Peripheral vascular disease, unspecified (principal) | CPT/HCPCS: 93922 ==